=== PATIENT | male | born 1970 | race Two or more races ===

== ENCOUNTER → 2020-03-07 | Outpatient (CLI) | payer BC ==
[2020-03-07 14:52] VITALS: BP 158/98
[2020-03-07 14:59] VITALS: BP 145/98
== END | disposition home or self-care (01) ==
LOC: Rad HDHVI 14:27
PROVIDERS: ATTEND Internal Medicine Cardiovascular Disease
DX: R51.9 Headache, unspecified (principal); J34.89 Other specified disorders of nose and nasal sinuses
CPT/HCPCS: 70470; G0463; Q9967